=== PATIENT | female | born 1950 | race Caucasian/White ===

== ENCOUNTER → 2021-07-31 | Outpatient (CLI) | payer MEDICARE ==
[~2021-07-31] MED LIST: ASPIR 8181 MG PO; AUGMENTIN 875-1 EACH PO; CALCIUM500 MG PO; CAPOZIDE 25/15 T1 EA PO; CATAPRES 0.1MG0.1 MG PO; COZAAR 50MG TAB50 MG PO; COZAAR100 MG PO; ELIQUIS5 MG PO; FLONASE 0.05% N16 GM; HYDRALAZINE HCL25 MG PO; K-DUR TAB 10 M10 MEQ PO; LASIX20 MG PO; METOPROLOL TART25 MG PO; MYCOPHENOLATE500 MG PO; NAPROXEN500 MG PO; NORVASC 5 MG TAB5 MG PO; OFEV150 MG PO; PREDNISONE5 MG PO; PROTONIX40 MG PO; RAMIPRIL5 MG PO; SINGULAIR10 MG PO; SUCRALFATE1 GM/10 ML PO; SULFAMETHOXAZO1 EACH PO; SYNTHROID50 MCG PO; VITAMIN D325 MCG PO
== END ==
LOC: HEART 5 08:11 → CT 08-01 14:00
DX: I44.7 Left bundle-branch block, unspecified (principal); R06.02 Shortness of breath
CPT/HCPCS: 78452; A9502; J2785

== ENCOUNTER → 2021-08-01 | Outpatient (CLI) | payer MEDICARE | LOC: CT 12:57 | DX: I71.2 Thoracic aortic aneurysm, without rupture (principal) | CPT/HCPCS: 36415; 71275; 82565; 84520; Q9967 ==

== ENCOUNTER 2021-08-22 17:25 | Emergency (ER) | payer MEDICARE ==
[2021-08-22 19:45] LABS: HEMOGLOBIN 13.5 gm/dl (12.3-15.3); RED BLOOD COUNT 4.44 M/UL (4.00-5.10); WHITE BLOOD COUNT 8.5 K/UL (4.5-11.0)
[2021-08-22 20:25] LABS: BUN/CREATININE RATIO 13 (0-10)
== END 2021-08-23 01:25 | disposition home or self-care (01) ==
LOC: ER1 17:25
PROVIDERS: Physician Assistant
DX: M54.6 Pain in thoracic spine (principal); I11.9 Hypertensive heart disease without heart failure; Z20.822 Contact with and (suspected) exposure to COVID-19
CPT/HCPCS: 71275; 80053; 81001; 82550; 82553; 83874; 83880; 84484; 85025; 85610; 85730; 87086; 99284; Q9967; U0002

== ENCOUNTER → 2022-01-30 | Outpatient (CLI) | payer MEDICARE | LOC: KOH-I 14:24 | DX: J20.9 Acute bronchitis, unspecified (principal); J84.10 Pulmonary fibrosis, unspecified | CPT/HCPCS: 71046 ==